=== PATIENT | female | born 1995 ===

== ENCOUNTER 2021-03-24 | Inpatient (IN) | payer BC ==
[2021-03-24] MEDS: Lactated Ringers 1,000 ML IV SCH ×3 (00:40→13:05)
[2021-03-24] MEDS ORDERED: Misoprostol 200 MCG Tab PO PRN (00:46)
[2021-03-24] MEDS ORDERED: Water For Irrigation,Sterile 1,000 ML Container IRR PRN (00:46)
[2021-03-24] MEDS ORDERED: Ondansetron 4 MG/2 ML SDV IVPUSH PRN (00:46)
[2021-03-24] MEDS ORDERED: Lidocaine 1% 50 ML MDV INJECT PRN (00:46)
[2021-03-24] MEDS ORDERED: Terbutaline 1 MG/ML SDV SUBCUT PRN (00:46)
[2021-03-24] MEDS ORDERED: Misoprostol 25 MCG (1/4 of 100 MCG) Tab VAG PRN ×2 (00:46)
[2021-03-24] MEDS ORDERED: Carboprost Tromethamine 250 MCG/1 ML Amp IM PRN (00:46)
[2021-03-24] MEDS ORDERED: Tranexamic Acid 1,000 MG in Sodium Chloride 0.9% 100 ML IV PRN (00:46)
[2021-03-24] MEDS ORDERED: Nalbuphine 10 MG/1 ML Vial IVPUSH PRN (00:46)
[2021-03-24] MEDS ORDERED: Methylergonovine 0.2 MG/1 ML Amp IM PRN (00:46)
[2021-03-24] MEDS ORDERED: Sodium Chloride 0.9% 10 ML Syringe FLUSH PRN (00:46)
[2021-03-24] MEDS ORDERED: Butorphanol 1 MG/ML SDV IVPUSH PRN (00:46)
[2021-03-24] MEDS ORDERED: Sodium Chloride 0.9% 20 ML SDV IV PRN (00:46)
[2021-03-24] MEDS ORDERED: Misoprostol 25 MCG (1/4 of 100 MCG) Tab PO PRN (00:58)
[2021-03-24] MEDS ORDERED: Misoprostol 25 MCG (1/4 of 100 MCG) Tab PO ONE (01:00)
[2021-03-24] MEDS ORDERED: Oxytocin/0.9 % Sodium Chloride 30 UNIT/500 ML BAG IV SCH ×2 (01:00)
[2021-03-24] MEDS ORDERED: Sodium Chloride 0.9% 20 ML SDV FLUSH PRN (01:01)
[2021-03-24] MEDS ORDERED: Ropivacaine HCl/PF 100 ML ONE (13:05)
[2021-03-24] MEDS ORDERED: ePHEDrine 50 MG/ML SDV IVPUSH PRN (14:09)
[2021-03-24] MEDS ORDERED: Ropivacaine HCl/PF 200 MG in Premix Bag 1 BAG EPIDUR SCH (14:15)
[2021-03-24] MEDS ORDERED: Witch Hazel Medicated Pads 40/Jar TOP PRN (17:33)
[2021-03-24] MEDS ORDERED: Bisacodyl 10 MG Supp RECTAL PRN (17:33)
[2021-03-24] MEDS ORDERED: Lanolin 100% Cream 7 GM Tube TOP PRN (17:33)
[2021-03-24] MEDS ORDERED: Benzocaine/Menthol 20%-0.5% Spray 78 GM Cannister TOP PRN (17:33)
[2021-03-24] MEDS ORDERED: Acetaminophen 500 MG Tab PO PRN (17:33)
[2021-03-24] MEDS ORDERED: Ibuprofen 400 MG Tab PO PRN (17:33)
[2021-03-24] MEDS: Acetaminophen 500 MG Tab PO PRN (18:48)
[2021-03-24] MEDS: Ibuprofen 800 MG Tab PO PRN (18:48)
[2021-03-24] MEDS: Docusate Sodium 100 MG Cap PO PRN (20:05)
[2021-03-25] MEDS: Docusate Sodium 100 MG Cap PO PRN (08:27)
[2021-03-25] MEDS: Acetaminophen 500 MG Tab PO PRN (08:27)
[2021-03-25] MEDS: Ibuprofen 800 MG Tab PO PRN (11:24)
== END 2021-03-25 18:12 | disposition home or self-care (01) | DRG 560 ==
LOC: MW.OBCHECK → MW.OB 00:01 → MW.OBCHECK 00:01 → MW.OB 00:11 → MW.OBCHECK 00:11 → OBSVTOIN 17:33 → MW.OB 20:45
PROVIDERS: ADMIT Obstetrics & Gynecology; ATTEND Obstetrics & Gynecology
PROC: 10E0XZZ Delivery of Products of Conception, External Approach (ICD-10-PCS; principal; 2021-03-24)
PROC: 3E0P7VZ Introduction of Hormone into Female Reproductive, Via Natural or Artificial Opening (ICD-10-PCS; 2021-03-24)
PROC: 0KQM0ZZ Repair Perineum Muscle, Open Approach (ICD-10-PCS; 2021-03-24)
PROC: 3E0R3BZ Introduction of Anesthetic Agent into Spinal Canal, Percutaneous Approach (ICD-10-PCS; 2021-03-24)
PROC: 00HU33Z Insertion of Infusion Device into Spinal Canal, Percutaneous Approach (ICD-10-PCS; 2021-03-24)
DX: O48.0 Post-term pregnancy (principal); Z37.0 Single live birth; Z3A.40 40 weeks gestation of pregnancy; Z91.030 Bee allergy status; O70.1 Second degree perineal laceration during delivery; Z20.822 Contact with and (suspected) exposure to COVID-19
CPT/HCPCS: 36415; 51701; 59025; 59409; 81003; 85014; 85018; 85027; 86592; 86850; 86900; 86901; A9270-GY; J0595; J2001; J2590; J2795; J7120; U0002

== ENCOUNTER 2021-03-27 09:10 | Emergency (ER) | payer BC ==
[2021-03-27] MEDS ORDERED: Sodium Chloride 0.9% 1,000 ML IV ONE (10:23)
[2021-03-27] MEDS ORDERED: Ondansetron 4 MG/2 ML SDV IVPUSH ONE (10:28)
[2021-03-27] MEDS ORDERED: diphenhydrAMINE 50 MG/ML SDV IVPUSH ONE (10:28)
[2021-03-27] MEDS ORDERED: Metoclopramide 10 MG/2 ML SDV IV ONE (10:28)
[2021-03-27 11:31] LABS: BLOOD UREA NITROGEN,BUN 7 mg/dL (7.0-18.0); CARBON DIOXIDE,CO2 24.1 mmol/L (21.0-32.0); CHLORIDE,CL 103 mmol/L (98-107); GLUCOSE RANDOM 73 mg/dL (74-106); POTASSIUM,K 3.4 mmol/L (3.5-5.1); SODIUM,NA 140 mmol/L (136-145)
== END 2021-03-27 12:09 | disposition home or self-care (01) ==
LOC: MW.ED 09:10
DX: G97.1 Other reaction to spinal and lumbar puncture (principal); Z91.030 Bee allergy status
CPT/HCPCS: 36415; 80053; 81001; 85025; 87086; 96374; 96375; 99284; J1200; J2405; J2765; J7030